=== PATIENT | female | born 1990 | race Caucasian/White ===

== ENCOUNTER 2019-01-14 00:25 | Emergency (ER) | payer BC ==
[~2019-01-14] VITALS: Ht 167.6 cm; Wt 141.0 kg
[2019-01-14 00:30] VITALS: BP 170/90; PULSE 91; RESP 20; Ht 167.6 cm; Wt 141.0 kg
[2019-01-14] MEDS ORDERED: CEPH-443 PO (02:34)
[2019-01-14] MEDS ORDERED: BEN25 PO (02:34)
[2019-01-14] MEDS ORDERED: PRED20TA PO (02:34)
--- NOTE | 2019-01-14 02:38 | ERD ---
ER Documentation Chief Complaint Chief Complaint blisters to hands HPI Patient is a 28-year-old female presents the ER for concerns of blisters on her hands for the last 2 days. Patient denies any fevers or chills. Patient states she has had similar symptoms in the past. Patient states she had taken prednisone and antibiotics and it went away. Patient does not recall any new creams, medications, foods, cleaning supplies. Patient denies any lip swelling, tongue swelling, difficulty breathing. No recent travel. No sick contacts. ROS All systems reviewed and are negative except as per history of present illness. Medications Home Meds Active Scripts Cephalexin* (Keflex*) 500 Mg Capsule, 500 MG PO TID for 7 Days, CAP Prov:SHAQUILLE VIEIRA PA-C 01/14/19 Diphenhydramine Hcl* (Benadryl*) 25 Mg Cap, 25 MG PO Q6, #30 CAP Prov:SHAQUILLE VIEIRA PA-C 01/14/19 Prednisone* (Prednisone*) 20 Mg Tab, 60 MG PO DAILY for 5 Days, TAB Prov:SHAQUILLE VIEIRA PA-C 01/14/19 Allergies Allergies: Coded Allergies: No Known Allergy (Unverified , 01/14/19) PMhx/Soc Medical and Surgical Hx: pt denies Medical Hx, pt denies Surgical Hx Hx Alcohol Use: Yes Hx Substance Use: No Hx Tobacco Use: No Smoking Status: Never smoker FmHx Family History: No diabetes Physical Exam Vitals Vital Signs Date Temp Pulse Resp B/P (MAP) Pulse Ox O2 O2 Flow FiO2 Time Delivery Rate 01/14/19 97.8 91 20 170/90 100 00:30 (116) Physical Exam GENERAL: Well-developed, well-nourished female. Appears in no acute distress. HEAD: Normocephalic, atraumatic. EYES: Pupils are equally reactive bilaterally. EOMs grossly intact. No conjunctival erythema. ENT: Moist mucous membranes. No uvula deviation. No kissing tonsils. No lip swelling. Nose tongue swelling. NECK: Supple. No meningismus. Normal range of motion of the neck. LUNG: Clear to auscultation bilaterally. No rhonchi, wheezing, rales or coarse breath sounds. HEART: Regular rate and rhythm. No murmurs, rubs or gallops. EXTREMITIES: Equal pulses bilaterally. No peripheral clubbing, cyanosis or edema. No unilateral leg swelling. NEUROLOGIC: Alert and oriented. Moving all four extremities without any difficulty. Normal speech. Steady gait. SKIN: Numerous fluid-filled blisters noted on the patient's palms bilaterally. Few blisters do appear to be oozing clear fluid. Negative Nikolsky sign. Patient able to bend digits however difficulty noted. Procedures/MDM MEDICAL DECISION MAKING: This is a 28-year-old female presents the ER for concerns of blisters to her bilateral hands x2 days. Vital signs were reviewed. Patient was afebrile. Patient is not diabetic. Skin exam revealed findings consistent with dyshidrotic eczema. Patient was advised she will need to follow-up with a heavy truck mechanic and/or airline captain for further management of her symptoms. Low suspicion for necrotizing fasciitis, sepsis, gangrene, Suman-Reji syndrome, toxic epidural necrolysis, abscess, cellulitis, fungal infection, insect bite, impetigo, dermatitis. She was nontoxic, [id number] prior to discharge. PRESCRIPTIONS: Prednisone, Keflex, Benadryl DISCHARGE: At this time, patient is stable for discharge and outpatient management. I have advised the patient to avoid any new products, creams or possible allergens. I have advised the patient to avoid scratching the lesions. I have instructed the patient to follow-up with his/her primary care physician in 1-2 days. If symptoms persist, patient may need to see a heavy truck mechanic for further examinations and testing. I have instructed the patient to promptly return to the ER at any time for any new or worsening symptoms including increased pain, fever, redness, swelling, warmth, difficulty breathing or vomiting. The patient and/or family expressed understanding of and agreement with this plan. All questions were answered. Home care instructions were provided. Disclaimer: Inadvertent spelling and grammatical errors are likely due to EHR/dictation software use and do not reflect on the overall quality of patient care. Also, please note that the electronic time recorded on this note does not necessarily reflect the actual time of the patient encounter. Departure Diagnosis: Primary Impression: Dyshidrotic eczema Condition: Fair Patient Instructions: Dermatitis, Non-Specific Referrals: WENDY BABCOCK MD,CHRISTINE MALDONADO,LARISSA ALICEA,FATOUMATA ALEX,CINTHYA CHRISTENSEN,[facility] YOU HAVE RECEIVED A MEDICAL SCREENING EXAM AND THE RESULTS INDICATE THAT YOU DO NOT HAVE A CONDITION THAT REQUIRES URGENT TREATMENT IN THE EMERGENCY DEPARTMENT. FURTHER EVALUATION AND TREATMENT OF YOUR CONDITION CAN WAIT UNTIL YOU ARE SEEN IN YOUR DOCTORS OFFICE WITHIN THE NEXT 1-2 DAYS. IT IS YOUR RESPONSIBILITY TO MAKE AN APPOINTMENT FOR FOLOW-UP CARE. IF YOU HAVE A PRIMARY DOCTOR --you should call your primary doctor and schedule an appointment IF YOU DO NOT HAVE A PRIMARY DOCTOR YOU CAN CALL OUR PHYSICIAN REFERRAL HOTLINE AT IF YOU CAN NOT AFFORD TO SEE A PHYSICIAN YOU CAN CHOSE FROM THE FOLLOWING [facility] [address] [facility]. [facility] [address] [facility] [address] [facility] [facility] [address] [facility] [facility] [address] [facility]. [facility] [address] [facility]. [facility] YOU HAVE RECEIVED A MEDICAL SCREENING EXAM AND THE RESULTS INDICATE THAT YOU DO NOT HAVE A CONDITION THAT REQUIRES URGENT TREATMENT IN THE EMERGENCY DEPARTMENT. FURTHER EVALUATION AND TREATMENT OF YOUR CONDITION CAN WAIT UNTIL YOU ARE SEEN IN YOUR DOCTORS OFFICE WITHIN THE NEXT 1-2 DAYS. IT IS YOUR RESPONSIBILITY TO MAKE AN APPOINTMENT FOR FOLOW-UP CARE. IF YOU HAVE A PRIMARY DOCTOR --you should call your primary doctor and schedule and appointment IF YOU DO NOT HAVE A PRIMARY DOCTOR YOU CAN CALL OUR PHYSICIAN REFERRAL HOTLINE AT . IF YOU CAN NOT AFFORD TO SEE A PHYSICIAN YOU CAN CHOSE FROM THE FOLLOWING [facility] INSTITUTIONS: [facility] [address] [place] [address] [facility] [address] [place] [address] [facility] [address] [place] [address] Additional Instructions: Call your primary care doctor TOMORROW for an appointment during the next 1-2 days.See the doctor sooner or return here if your condition worsens before your appointment time. SHAQUILLE VIEIRA PA-C Jan 14, 2019 02:38
== END 2019-01-14 03:16 | disposition home or self-care (01) ==
LOC: FTE 00:25
DX: L30.1 Dyshidrosis [pompholyx] (principal)
CPT/HCPCS: 99283